=== PATIENT | male | born 1980 | race Caucasian/White ===

== ENCOUNTER 2022-12-15 11:33 | Emergency (ER) | payer OTHER | END 2022-12-15 13:18 | disposition home or self-care (01) | LOC: MW.ED 11:33 | DX: S20.212A Contusion of left front wall of thorax, initial encounter (principal); V49.10XA Passenger injured in collision with unspecified motor vehicles in nontraffic accident, initial encounter; Y92.410 Unspecified street and highway as the place of occurrence of the external cause | CPT/HCPCS: 71101-26-LT; 71101-LT; 99282; 99283 ==